=== PATIENT | male | born 1995 | race Caucasian/White ===

== ENCOUNTER 2016-10-22 19:20 | Emergency (ER) | payer MEDICAID ==
[~2016-10-22] VITALS: Ht 170.2 cm; Wt 94.3 kg
[2016-10-22 19:40] VITALS: BP 127/79
--- NOTE | 2016-10-22 19:56 | PHYS DOC ---
General Chief Complaint: FACE PAIN Stated Complaint: FACE PAIN Time Seen by MD: 19:55 Source: patient Problems: History of Present Illness Initial Comments Patient here for right face and ear pain. He says his been going on for several days and increasing. He says his been taking "handfuls" of ibuprofen without help. He says the pain is located mostly just in front of his right ear. There is no history of injury or trauma to the area. Says she's never had pain like this before. He's had no fever or chills. He has no runny nose or sore throat. He says it does hurt she will not side. Has no difficulty swallowing or talking. Has no chest pain or shortness of breath and no nausea vomiting. Patient did see his own dentist today who said that his teeth look good he doesn 't think this is resulting from dental pain. Patient says he try to clean his ear out with a Q-tip last night the shower when he came out there was what he thought was some blood on the Q-tip. As noted, there is no history of injury or trauma to the ear. He's been nothing else home for this except as described and notes no other increasing or decreasing factors. Patient's past medical history is remarkable for ADHD. He takes no medication currently. He is a nonsmoker and an occasional social user of ethanol. Allergies: Coded Allergies: No Known Drug Allergies (Unverified , 09/08/16) Past Medical History Medical History: no pertinent history Psychosocial History: attn. deficit disorder Social History Smoker: non-smoker Alcohol: occasionally Review of Systems Constitutional: no symptoms reported EENTM: see HPI Respiratory: no symptoms reported Cardiovascular: no symptoms reported Gastrointestinal: no symptoms reported Physical Exam General Appearance: WD/WN, no apparent distress Ear, Nose, Throat: normal pharynx, other Neck: full range of motion, supple, normal inspection Respiratory: lungs clear, normal breath sounds, no respiratory distress Cardiovascular: regular rate, rhythm, no edema Neurologic/Psychiatric: alert, normal mood/affect, oriented x 3 Skin: normal color, rash Comments Generally this a well-developed well-nourished white male in no acute distress. Vitals are as noted. Pertinent signs on physical exam shows the nose and throat to be clear. The left ureter appears clear. The right seems to have some debris in the canal but the canal itself does not appear to be red or inflamed. There is no signs of trauma. There is minimal tenderness to pushing on the pinna or pulling on the tragus. 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 This is worse on the right. He says he has never noticed that before. He has some mild tenderness in the area anterior to the tragus, and the pain is worse when he opened and close his jaw. There is no click or deformity. There is no nodes noted anterior to the ear. He is supple without adenopathy or JVD. Chest is clear and cardiovascular exams unremarkable. He is awake alert oriented and cooperative. Remainder of physical exam is clinically unremarkable. Orders, Labs, Meds Old charts note to prior ER visits this year for gingivitis and dental caries pain. 2100 Patient resting comfortably ER. He is ears were irrigated and after examination his canals and TMs are clear. There is no significant cerumen removed, but simply a lot of debris probably related to some psoriasis. As noted , the patient's pain is really located anterior to the tragus, and it is worse with opening and closing jaw. I wonder if he has some TMJ discomfort. In any event, there doesn't appear to be anything acute ongoing at this time require further evaluation and care today. He has no history of injury or trauma to the area. I suggested to them that we conservatively given him some medicine at home for pain, and have written a prescription for Ultram accordingly. He denies any seizure history. I did suggest a need to follow-up with his dentist, as he may benefit from some sort of TMJ exceptional needs teacher treatment. I did discuss with him the uncertain cause of his discomfort, there may be something else going on and so she certainly return for increasing pain, swelling in the area, any drainage from the ear, fever chills or difficulty swallowing or talking. He voices understanding of the need to follow up with dentistry or return to the ER immediately as needed if worsen anyway. He looks well, in no acute discomfort or stress, okay for discharge home at this time. RACHEL RUIZ MD Oct 22, 2016 19:55
[2016-10-22] MEDS ORDERED: HYDROCODONE/APAP 7.5/325MG TABLET. PO ONE (20:30)
[2016-10-22] MEDS ORDERED: TRAMADOL 50 MG TABLET. PO ONE (21:30)
[2016-10-23] MEDS ORDERED: HYDR-971 PO (10:22)
[2016-10-23] MEDS ORDERED: ONDA4TAB10 PO (10:22)
== END 2016-10-22 21:18 | disposition home or self-care (01) ==
LOC: ER 19:20
DX: H92.01 Otalgia, right ear (principal); R51 Headache; F90.9 Attention-deficit hyperactivity disorder, unspecified type
CPT/HCPCS: 99283

== ENCOUNTER 2016-10-23 10:03 | Emergency (ER) | payer MEDICAID ==
[2016-10-23] MEDS ORDERED: ONDA4TAB10 PO (10:22)
[2016-10-23] MEDS ORDERED: HYDR-971 PO (10:22)
[2016-10-23 10:30] VITALS: BP 134/63
--- NOTE | 2016-10-23 14:41 | ED.ADGEN ---
Past History Past Medical History: Anxiety, Depression, Other Past Surgical History: No Surgical History Alcohol Use: Occasionally Drug Use: None Adult General HPI HPI Patient is a 21-year-old male presents emergency department complaining of pain in his TMJ. He was diagnosed with TMJ pain yesterday. Was given tramadol. He did not fill that prescription but he cannot tolerate medication. He is experiencing severe nausea and vomiting. Patient denies any other new symptoms Review of Systems Review of Systems Constitutional: Denies fever or chills [] Eyes: Denies change in visual acuity, redness, or eye pain [] HENT: Denies nasal congestion or sore throat [] Respiratory: Denies cough or shortness of breath [] Cardiovascular: No additional information not addressed in HPI [] GI: Denies abdominal pain, nausea, vomiting, bloody stools or diarrhea [] : Denies dysuria or hematuria [] Musculoskeletal: Denies back pain or joint pain [] Integument: Denies rash or skin lesions [] Neurologic: Denies headache, focal weakness or sensory changes [] Endocrine: Denies polyuria or polydipsia [] Allergies Allergies Allergies Coded Allergies Type Severity Reaction Last Updated Verified No Known Drug Allergies 09/08/16 No Physical Exam Physical Exam Constitutional: Well developed, well nourished, no acute distress, non-toxic appearance. [] HENT: Normocephalic, atraumatic, bilateral external ears normal, oropharynx moist, no oral exudates, nose normal. [] Eyes: PERRLA, EOMI, conjunctiva normal, no discharge. [] Neck: Normal range of motion, no tenderness, supple, no stridor. [] Cardiovascular:Heart rate regular rhythm, no murmur [] Lungs & Thorax: Bilateral breath sounds clear to auscultation [] Skin: Warm, dry, no erythema, no rash. [] Back: No tenderness, no CVA tenderness. [] Extremities: No tenderness, no cyanosis, no clubbing, ROM intact, no edema. [] Neurologic: Alert and oriented X 3, normal motor function, normal sensory function, no focal deficits noted. [] Psychologic: Affect normal, judgement normal, mood normal. [] Current Patient Data Vital Signs Vital Signs Date Time Temp Pulse Resp B/P Pulse Ox O2 Delivery O2 Flow Rate FiO2 10/23/16 10:30 75 18 134/63 96 Room Air 10/23/16 10:03 96.1 EKG EKG [] Radiology/Procedures Radiology/Procedures [] Course & Med Decision Making Course & Med Decision Making Pertinent Labs and Imaging studies reviewed. (See chart for details) I did change his prescription to a small quantity of [place]. He still follow with his primary care physician in the next 48 hours or return emergency Department sooner if he develops new or worsening symptoms. [] Final Impression Final Impression TMJ [] Problems: Dragon Disclaimer Dragon Disclaimer This electronic medical record was generated, in whole or in part, using a voice recognition dictation system. KAYCE FINNEGAN MD Oct 23, 2016 14:41
== END 2016-10-23 10:30 | disposition home or self-care (01) ==
LOC: ER 10:03
DX: M26.623 Arthralgia of bilateral temporomandibular joint (principal); R11.2 Nausea with vomiting, unspecified
CPT/HCPCS: 99283